=== PATIENT | female | born 1985 | race Caucasian/White ===

== ENCOUNTER 2017-11-10 16:33 | Emergency (ER) | payer MEDICAID ==
[~2017-11-10] VITALS: Ht 162.6 cm; Wt 81.1 kg
[2017-11-10] MEDS ORDERED: ONDANSETRON ODT 4 MG ONE (16:54)
[2017-11-10] MEDS ORDERED: HYDROcodone/APAP 5/325 TABLET ONE (16:54)
[2017-11-10] MEDS ORDERED: HYDROcodone/APAP 5/325 TABLET PO ONE (17:00)
[2017-11-10] MEDS ORDERED: ONDANSETRON ODT 4 MG PO ONE (17:00)
[2017-11-10 17:13] VITALS: BP 128/87
== END 2017-11-10 17:15 | disposition home or self-care (01) ==
LOC: ED 16:50
DX: K02.9 Dental caries, unspecified (principal); K04.7 Periapical abscess without sinus
CPT/HCPCS: 99283; Q0162

== ENCOUNTER 2018-02-23 18:26 | Emergency (ER) | payer SELFPAY ==
[~2018-02-23] VITALS: Ht 162.6 cm; Wt 79.0 kg
[2018-02-23 18:33] VITALS: BP 140/99
--- NOTE | 2018-02-23 18:41 | NUR ---
PT TO ROOM 6 W/ C/O R HIP AND LOWER BACK PAIN STARTED 2 WKS AGO. PT STATES SHE HAS PAIN NEAR GROIN AREA AND RADIATING TO THE BACK OF PT R LEG. PT DENIES HX.
[2018-02-23] MEDS ORDERED: KETOROLAC 30 MG/1 ML ONE (19:26)
[2018-02-23] MEDS ORDERED: CYCLOBENZAPRINE 10 MG TABLET ONE (19:26)
[2018-02-23] MEDS ORDERED: ACETAMINOPHEN 325 MG TABLET ONE (19:26)
[2018-02-23] MEDS ORDERED: ACETAMINOPHEN 500 MG TABLET ONE (19:29)
[2018-02-23] MEDS ORDERED: CYCLOBENZAPRINE 10 MG TABLET PO ONE (19:30)
[2018-02-23] MEDS ORDERED: KETOROLAC 30 MG/1 ML IM ONE (19:30)
[2018-02-23] MEDS ORDERED: ACETAMINOPHEN 500 MG TABLET PO ONE (19:30)
== END 2018-02-23 19:38 | disposition home or self-care (01) ==
LOC: ED 19:16
DX: S76.011A Strain of muscle, fascia and tendon of right hip, initial encounter (principal); F17.200 Nicotine dependence, unspecified, uncomplicated; Z90.49 Acquired absence of other specified parts of digestive tract; X58.XXXA Exposure to other specified factors, initial encounter; Y93.89 Activity, other specified; Y92.89 Other specified places as the place of occurrence of the external cause; Y99.8 Other external cause status
CPT/HCPCS: 72110; 73502; 96372; 99283; J1885